=== PATIENT | male | born 1945 | race Caucasian/White ===

== ENCOUNTER → 2018-10-19 | Outpatient (CLI) | payer OTHER ==
[~2018-10-19] MED LIST: AIRBORNE TABLE1 EAC1 PO; ALLERGY MED PO; ANDROGEL1.25 GM TD; ASPI325 PO; ASPI81CH PO; ATOR20 PO; Advil200 M1 PO; Aspir 8181 MG PO; CHOL10002 PO; CYAN1000 PO; Colace100 MG PO; Coumadin4 MG PO; FARXIGA10 MG PO; FERR325 PO; GENUVIA; GLIM2 PO; INSULANPEN SC; Klor-Con 1010 MEQ PO; LISHYD2012 PO; MELO7.5 PO; METF500 PO; OMEP10ER PO; OXYC10TA19; POTASSIUM GLUCONATE PO; PROM25 PO; Prilosec Otc20 MG PO; SITA25T2 PO; ZESTORETIC 20-121 EA PO; [UNRECOGNIZED DRUG - OTHER]
== END | disposition home or self-care (01) ==
LOC: PLD 10:13 → LAB SHORT 10:13
DX: D04.61 Carcinoma in situ of skin of right upper limb, including shoulder (principal)
CPT/HCPCS: 88305

== ENCOUNTER 2019-04-26 09:25 | Day surgery (SDC) | payer OTHER ==
[~2019-04-26] VITALS: Ht 180.3 cm; Wt 119.0 kg
[~2019-04-26 09:25] MED LIST changes: +B COMPLEX PO; +CYCL10 PO; +ELIQUIS5 MG PO; +Humalog Mi100 UNIT/4; +METO50ER PO; +MICROZIDE12.5 M1 PO; +Norco 10-325 T1 EACH PO; +OXYC5 PO; +SOLIQUA 100 UNIT3 ML SQ
--- NOTE | 2019-04-26 12:12 | NUR ---
PT TO RECOVERY POST PROCEDURE. PT IS AWAKE, ALERT AND ORIENTED; DENIES CHEST PAIN/PRESSURE, SOB OR NAUSEA POST PROCEDURE. MONITOR AFIB 90'S, B/P 105/52, AFEBRILE, SPO2 95% RA. R RADIAL SITE NO SWELLING/HEMATOMA, TR BAND IN PLACE WITH 10CC AIR. PT'S HERE, DR SAMANO HERE TO DISCUSS RESULTS WITH PT AND .
--- NOTE | 2019-04-26 15:02 | NUR ---
Dishcarge Pt remained A&OX3 and denied any pain during recovery. TR band removed from right radial, cloth dot, white board and arm sling in place-cdi no hematoma noted. IV DC'd with canula in tact. Pt able to dress self with little assistance from spouse. Discharge paperwork gone over with pt and spouse. Pt and spouse verbally stated the understanding of the discharge education and denied any questions at this time. pt refused to be wheelchaired out and ambulated out with spouse.
== END 2019-04-26 14:45 | disposition home or self-care (01) ==
LOC: MHTC 09:25
PROC: B2111ZZ Fluoroscopy of Multiple Coronary Arteries using Low Osmolar Contrast (ICD-10-PCS; principal; 2019-04-26)
PROC: 4A023N7 Measurement of Cardiac Sampling and Pressure, Left Heart, Percutaneous Approach (ICD-10-PCS; principal; 2019-04-26)
DX: I25.119 Atherosclerotic heart disease of native coronary artery with unspecified angina pectoris (principal); I10 Essential (primary) hypertension; E78.5 Hyperlipidemia, unspecified; I05.8 Other rheumatic mitral valve diseases; E11.9 Type 2 diabetes mellitus without complications; I48.92 Unspecified atrial flutter; E66.2 Morbid (severe) obesity with alveolar hypoventilation; Z68.36 Body mass index [BMI] 36.0-36.9, adult; Z79.82 Long term (current) use of aspirin; Z79.4 Long term (current) use of insulin; Z79.01 Long term (current) use of anticoagulants; Z79.899 Other long term (current) drug therapy; Z87.891 Personal history of nicotine dependence; Z95.5 Presence of coronary angioplasty implant and graft
CPT/HCPCS: 76937; 82947; 85347; 92978; 93005; 93010; 93458; 93571; 99152; 99153; C1753; C1769; C1887; C1894; J1644; J2250; J3010; J7030; Q9967

== ENCOUNTER → 2021-04-10 | Outpatient (CLI) | payer OTHER | END | disposition home or self-care (01) | LOC: LAB SHORT 13:00 | DX: N39.0 Urinary tract infection, site not specified (principal) | CPT/HCPCS: 87077; 87086; 87186 ==

== ENCOUNTER 2022-10-27 10:43 | Day surgery (SDC) | payer OTHER ==
[~2022-10-27] VITALS: Ht 180.3 cm; Wt 117.2 kg
[2022-10-27] MEDS ORDERED: AMIODARONE HCL100 M1 (11:13)
[2022-10-27] MEDS ORDERED: FURO40 (11:13)
[2022-10-27] MEDS ORDERED: AMLO5 (11:13)
[2022-10-27] MEDS ORDERED: OZEMPIC1 MG/0.72 (11:14)
[2022-10-27] MEDS ORDERED: TIMO.25OPS (11:14)
[2022-10-27] MEDS ORDERED: ATOR40TA (11:14)
[2022-10-27] MEDS ORDERED: CLIN1TS (11:15)
[2022-10-27] MEDS ORDERED: HYDROCODONE-AC1 EAC7 (11:16)
[2022-10-27] MEDS ORDERED: Voltaren100 GM (11:17)
[2022-10-27 12:57] VITALS: BP 114/69
== END 2022-10-27 12:50 | disposition home or self-care (01) ==
LOC: ORSCSDS 10:43
PROVIDERS: Student in an Organized Health Care Education/Training Program
PROC: 0DBL8ZX Excision of Transverse Colon, Via Natural or Artificial Opening Endoscopic, Diagnostic (ICD-10-PCS; principal; 2022-10-27 12:00)
PROC: 0DBH8ZX Excision of Cecum, Via Natural or Artificial Opening Endoscopic, Diagnostic (ICD-10-PCS; principal; 2022-10-27 12:00)
PROC: 0DBN8ZX Excision of Sigmoid Colon, Via Natural or Artificial Opening Endoscopic, Diagnostic (ICD-10-PCS; principal; 2022-10-27 12:00)
PROC: 0DBM8ZX Excision of Descending Colon, Via Natural or Artificial Opening Endoscopic, Diagnostic (ICD-10-PCS; principal; 2022-10-27 12:00)
DX: Z12.11 Encounter for screening for malignant neoplasm of colon (principal); Z86.010 Personal history of colon polyps; D12.5 Benign neoplasm of sigmoid colon; D12.3 Benign neoplasm of transverse colon; K63.5 Polyp of colon; K64.8 Other hemorrhoids; E78.5 Hyperlipidemia, unspecified; I25.10 Atherosclerotic heart disease of native coronary artery without angina pectoris; G47.33 Obstructive sleep apnea (adult) (pediatric); I48.91 Unspecified atrial fibrillation; Z79.01 Long term (current) use of anticoagulants; I12.9 Hypertensive chronic kidney disease with stage 1 through stage 4 chronic kidney disease, or unspecified chronic kidney disease; E11.22 Type 2 diabetes mellitus with diabetic chronic kidney disease; N18.30 Chronic kidney disease, stage 3 unspecified; Z79.899 Other long term (current) drug therapy; E66.9 Obesity, unspecified; Z68.37 Body mass index [BMI] 37.0-37.9, adult
CPT/HCPCS: 82947; 88305; J2704; J3010; J7120

== ENCOUNTER 2024-07-26 09:47 | Day surgery (SDC) | payer OTHER ==
[~2024-07-26] VITALS: Ht 182.9 cm; Wt 121.5 kg
[2024-07-26] VITALS (20 sets, daily range): BP systolic 89–996; BP diastolic 47–72
[~2024-07-26 09:47] MED LIST changes: +AMIODARONE HCL100 M1 PO; +AMLO5 PO; +ATOR40TA PO; +CLIN1TS TOP; +FURO40 PO; +HUMALOG MI100 UNIT/1; +HYDROCODONE-AC1 EAC7 PO; -Humalog Mi100 UNIT/4; +INSULIN ASPART SC; +LISI5 PO; +OZEMPIC1 MG/0.72 SC; +SOLIQUA 100 UNIT3 M1 SC; -SOLIQUA 100 UNIT3 ML SQ; +TIMO.25OPS; +Voltaren100 GM
[2024-07-26] MEDS ORDERED: Ropivacaine 0.5% HCl/Pf 123.125 MG,EPINEPHrine HCL 0.25 MG,Ketorolac Tromethamine 15 MG... INFIL SCH (10:10)
[2024-07-26] MEDS ORDERED: Tranexamic Acid 100 ML IV SCH (10:10)
[2024-07-26] MEDS ORDERED: OxyCODONE HCL 10 MG TABCR PO SCH (10:10)
[2024-07-26] MEDS ORDERED: Acetaminophen 500 MG Tab PO SCH ×2 (10:10→16:00)
[2024-07-26] MEDS ORDERED: Chlorhexidine Mouth Care 15 ML UDC MT SCH (10:10)
[2024-07-26] MEDS ORDERED: CeFAZolin Sodium 2,000 MG in NS 100 ML IV SCH ×2 (10:10→21:00)
[2024-07-26] MEDS ORDERED: Lactated Ringer's 1,000 ML IV SCH ×2 (10:10→11:55)
--- NOTE | 2024-07-26 10:30 | NUR ---
INTO [facility] AMBULATORY. PT A&O X 4. DENIES PAIN OR SOB. HISTORY AND ALLERGIES REVIEWED. LUNGS CLEAR. MURMUR AUSCULTATED-PT STATES THAT HE NEEDS A VALVE REPLACEMENT. HR 60'S. NPO STATUS CONFIRMED. BELONGINGS GIVEN TO PT ELAINE.
[2024-07-26] MEDS ORDERED: CeFAZolin Sodium 3,000 MG in NS 100 ML IV SCH (11:20)
[2024-07-26] MEDS ORDERED: CeFAZolin Sodium 3,000 MG VIAL ONE (11:28)
[2024-07-26] MEDS ORDERED: Promethazine HCl 25 MG Tab PO PRN (11:50)
[2024-07-26] MEDS ORDERED: Metoclopramide HCl 5MG / ML 2ML Vial IV PRN (11:50)
[2024-07-26] MEDS ORDERED: OxyCODONE HCL 5 MG TAB PO PRN ×2 (11:50)
[2024-07-26] MEDS ORDERED: Furosemide 40 MG Tab PO PRN (11:50)
[2024-07-26] MEDS ORDERED: Cyclobenzaprine HCl 10 MG Tab PO PRN (11:50)
[2024-07-26] MEDS ORDERED: Magnesium Hydroxide Conc 10 ML UDC PO PRN (11:55)
[2024-07-26] MEDS ORDERED: HYDROmorphone HCl/Pf 1MG SYR IV PRN ×2 (11:55→13:55)
[2024-07-26] MEDS ORDERED: Ondansetron HCl 2 MG / ML 2ML Vial IV PRN ×2 (11:55→13:50)
[2024-07-26] MEDS ORDERED: DiphenhydrAMINE HCL 25 MG Cap PO PRN (12:00)
[2024-07-26] MEDS ORDERED: FLU VACC TS2024-25(6MOS UP)/PF 45 MCG/0.5 ML SYRINGE IM SCH (12:00)
[2024-07-26] MEDS ORDERED: Bisacodyl 10 MG Supp PR PRN (12:00)
[2024-07-26] MEDS ORDERED: propofoL 100 ML IV ONE (12:17)
[2024-07-26] MEDS ORDERED: Bupivacaine 0.75%/Dext 8.25% 2 ML Amp IT ONE (12:17)
[2024-07-26] MEDS ORDERED: FentaNYL Citrate 50 MCG/ML 2 ML Injection ONE (12:20)
[2024-07-26] MEDS ORDERED: Midazolam HCl 1MG / ML 2ML Vial ONE (12:20)
[2024-07-26] MEDS ORDERED: Ondansetron HCl 2 MG / ML 2ML Vial ONE (12:39)
[2024-07-26] MEDS ORDERED: Dexamethasone Sod Phos 10 MG/ML 1ML VIAL ONE (12:39)
[2024-07-26] MEDS ORDERED: Lidocaine HCl 1% 5 ML SYR INJ ONE (13:50)
[2024-07-26] MEDS ORDERED: FentaNYL Citrate 50 MCG/ML 2 ML Injection IV PRN ×2 (13:50→13:55)
[2024-07-26] MEDS ORDERED: Lactated Ringer's 1,000 ML IV ONE (14:57)
--- NOTE | 2024-07-26 15:16 | NUR ---
CALLED [facility] TO VERIFY IF POST OP FSBS IS NEEDED. VERBAL ORDER RECEIVED TO GET FSBS. FSBS 210 AT 1509. ALSO NOTIFIED [facility] OF BP- VERBAL ORDER FROM MDA TO GIVE 200 ML FLUID BOLUS.
[2024-07-26] MEDS ORDERED: Insulin Regular 100 UNIT/ML 10ML Vial SC SCH (16:30)
[2024-07-26] MEDS ORDERED: MetFORMIN HCl 500 mg PO SCH (17:30)
[2024-07-26] MEDS ORDERED: Ketorolac Tromethamine 15mg Vial IV SCH (18:00)
[2024-07-26] MEDS ORDERED: Docusate Sodium 100 MG Cap PO SCH (21:00)
[2024-07-26] MEDS ORDERED: AmLODIPine Besylate 5 MG Tab PO SCH (21:00)
--- NOTE | 2024-07-26 21:00 | NUR ---
DISCHARGE SUMMARY POD 0 L TKA. VSS. TOLERATING ORALS, DENIES N/V. AQUACEL & JOSE WRAP TO LLE C/D/I. KNEE HIGH ZAKIA HOSE IN USE. PT REPORTS PAIN TOLERABLE, MEDICATED PER EMAR, POLAR PACK IN USE. AMBULATES USING FWW c SBA. VOIDING IND. DISCHARGE INSTRUCTIONS GIVEN, PT VERBALIZES UNDERSTANDING. ALL PERSONAL BELONGINGS, EXTRA DRESSINGS, POLAR PACK c PT. D/C VIA WHEELCHAIR TO POV, DRIVEN BY .
[2024-07-27] MEDS ORDERED: Cholecalciferol 1000 Unit Tablet (=25MCG) PO SCH (09:00)
[2024-07-27] MEDS ORDERED: Amiodarone HCl 200 MG Tab PO SCH (09:00)
[2024-07-27] MEDS ORDERED: Lisinopril 5 MG Tab PO SCH (09:00)
[2024-07-27] MEDS ORDERED: Atorvastatin 10 MG Tab PO SCH (09:00)
== END 2024-07-26 21:00 | disposition home or self-care (01) ==
LOC: ORSCMMR 09:47 → ORD 10:00 → ORSCMMR 11:00 → SURS 15:25 → ORSCMMR 21:00 → SURS 21:00
PROVIDERS: Orthopaedic Surgery
PROC: 0SRD0JA Replacement of Left Knee Joint with Synthetic Substitute, Uncemented, Open Approach (ICD-10-PCS; principal; 2024-07-26 11:00)
DX: M17.12 Unilateral primary osteoarthritis, left knee (principal); I12.9 Hypertensive chronic kidney disease with stage 1 through stage 4 chronic kidney disease, or unspecified chronic kidney disease; E11.22 Type 2 diabetes mellitus with diabetic chronic kidney disease; N18.9 Chronic kidney disease, unspecified; Z79.84 Long term (current) use of oral hypoglycemic drugs; Z79.85 Long-term (current) use of injectable non-insulin antidiabetic drugs; G47.33 Obstructive sleep apnea (adult) (pediatric); E03.9 Hypothyroidism, unspecified; I25.10 Atherosclerotic heart disease of native coronary artery without angina pectoris; I48.0 Paroxysmal atrial fibrillation; Z79.01 Long term (current) use of anticoagulants; E66.01 Morbid (severe) obesity due to excess calories; Z68.36 Body mass index [BMI] 36.0-36.9, adult
CPT/HCPCS: 73560-LT; 82947; 97110; 97116; 97161; 97530; A9270; C1713; C1776; J0171; J0690; J0735; J1100; J1171; J1885; J2250; J2405; J2704; J2795; J3010; J7120